=== PATIENT | female | born 2000 | race Asian ===

== ENCOUNTER 2025-07-01 08:50 | Observation (INO) | payer BC, SELFPAY ==
[2025-07-01 08:50] VITALS: BP 102/58; RESP 16; TEMP 36.8
[2025-07-01 09:01] VITALS: BP 102/58; PULSE 92
--- NOTE | 2025-07-01 09:31 | XR_ITS ---
Examination: Complete OB ultrasound greater than 14 weeks Date and time of exam: July 01, 2020 5:10 AM INDICATIONS: Vaginal bleeding beginning 4 days ago Findings: Viable intrauterine single fetus with single amniotic sac presentation cephalic spine maternal left Placenta anterior grade 1 Umbilical cord insertion seen Amniotic fluid index 12.3 cm Cervix 3.6 cm Ovaries obscured by bowel gas. Composite estimated gestational age based on BPD, head circumference, abdominal circumference, femur length is 29 weeks 1 day Estimated weight 1261.6 g. Survey of intracranial anatomy, spinal anatomy, abdominal anatomy, four-chamber heart performed with no abnormalities identified. Impression: Viable intrauterine gestation cephalic presentation.
[2025-07-01 09:32] VITALS: BP 90/56; PULSE 98
[2025-07-01 09:43] VITALS: BMI 33.6
--- NOTE | 2025-07-01 09:59 | XR_ITS ---
Examination: OB Transvaginal ultrasound of the pelvis, Limited Technique: Transvaginal sonographic images pelvis performed using cast scale imaging Exam date and time: July 01, 2025 10:10 AM INDICATIONS: Vaginal bleeding beginning 4 days ago, severe today. FINDINGS: Cervix 3.7 cm closed IMPRESSION: Cervix 3.7 cm closed.
[2025-07-01 10:01] VITALS: BP 92/57; PULSE 92
[2025-07-01 10:40] VITALS: BP 93/52; PULSE 95
== END 2025-07-01 11:37 | disposition home or self-care (01) ==
PROVIDERS: Admitting Provider Specialist; Visit Provider Specialist
DX: O46.93 Antepartum hemorrhage, unspecified, third trimester (principal); Z3A.28 28 weeks gestation of pregnancy
CPT/HCPCS: 59025; 59899; 76805; 76817

== ENCOUNTER 2025-09-14 21:16 | Inpatient (IN) | payer BC, SELFPAY ==
[2025-09-14] VITALS (36 sets, daily range): BP systolic 116–148; BP diastolic 71–92; PULSE 89–133; RESP 19; TEMP 36.6; O2SAT 90–100; BMI 36.3
[2025-09-14 22:01] LABS: Basophils # (Auto) 0.0 Thou/mm3 (0.0-0.2); Basophils % (Auto) 0 % (0-2.5); Eosinophils # (Auto) 0.0 Thou/mm3 (0.0-0.5); Eosinophils % (Auto) 1 % (0-10); Hematocrit 38.8 % (36.0-46.0); Hemoglobin 13.1 g/dL (12.0-16.0); Immature Granulocytes Auto 0.03 Thou/mm3 (0.00-0.00); Lymphocytes # (Auto) 2.1 Thou/mm3 (1.0-4.8); Lymphocytes % (Auto) 29 % (10-50); Mean Corpuscular HGB Conc 33.8 g/dl (31.0-37.0); Mean Corpuscular Hemoglobin 29.4 pg (25.0-35.0); Mean Corpuscular Volume 87 fL (80-100); Monocytes # (Auto) 0.6 Thou/mm3 (0.0-0.8); Monocytes % (Auto) 8 % (0-12); Neutrophils # (Auto) 4.4 Thou/mm3 (1.8-7.7); Neutrophils % (Auto) 62 % (37-80); Nucleated Red Blood Cell # 0.00 Thou/mm3 (0.00-0.00); Nucleated Red Blood Cell % 0 /100 WBC (0); Platelet Count 160 Thou/mm3 (140-440); RDW Standard Deviation 45.0 fL (36.4-46.3); Red Blood Count 4.46 Miln/mm3 (4.00-5.20); White Blood Count 7.1 Thou/mm3 (3.6-11.0)
[2025-09-14 22:43] LABS: Syphilis Nonreactive (Nonreactive)
[2025-09-14] MEDS: RINGERS LACTATED 1000 ML 1,000 ML 125 ML IV (23:02)
[2025-09-15] VITALS (77 sets, daily range): BP systolic 91–175; BP diastolic 51–94; PULSE 85–160; RESP 14–20; TEMP 36.7–37.4; O2SAT 84–98
[2025-09-15] MEDS: OXYTOCIN in NS 20 units 20 UNIT/1,000 ML BAG 125 UNIT IV (03:48)
--- NOTE | 2025-09-15 04:06 | PD.LDHP ---
Documentation for date of: 09/15/25 OB Labor/Induct. HPI History of Present Illness : 2 Para: 1 Term pregnancies: 1 pregnancies: 0 Living children: 1 History of Abortions: Spontaneous and Elective: 0 History of Vaginal deliveries: 1 History of sections: No History of : No Date of last menstrual period: 11/29/24 SHEFALI: 09/18/25 Gestational Age (weeks): 39 Gestational Age (days): 4 Gestational age based on last menstrual period: 41 History of present illness: H and P dictated in Nuance. History of Present Adequate Care: Yes Labs Labs: Negative: RPR, Hepatitis B, Rubella Titre, HIV, Chlamydia, Gonorrhea and Group Beta Strep and Unknown: Herpes Type 1, Herpes Type 2 and Covid-19 Past Medical History Surgical History SURGICAL: Negative Section Meds Home Medications and Allergies Home Medications ?Medication ?Instructions ?Recorded ?Confirmed ?Type vit no.95-ferrous 1 tab PO QDAY 07/01/25 09/14/25 History fumarate 28 mg-folic acid 800 mcg tablet () Allergies Allergy/AdvReac Type Severity Reaction Status Date / Time No Known Allergies Allergy Verified 09/14/25 21:26 OB Exam Physical Exam Vital signs: Temp Pulse Resp BP Pulse Ox 97.9 F 122 H 19 111/68 98 09/14/25 23:09 09/15/25 04:05 09/14/25 23:09 09/15/25 04:05 09/15/25 04:02 OB Results Labs 09/14/25 21:45 Labs: Short CBC 09/14/25 Range/Units 21:45 WBC 7.1 (3.6-11.0) Thou/mm3 Hgb 13.1 (12.0-16.0) g/dL Hct 38.8 (36.0-46.0) % Plt Count 160 (140-440) Thou/mm3
--- NOTE | 2025-09-15 04:07 | PD.LDDS ---
DS: Providers Provider Date of admission: 09/14/25 21:47 Primary care physician: Physician No Primary/Family Admitting Provider: Felipe Porras MD Attending Provider on Admission: Felipe Porras MD Attending Provider on DC: Felipe Porras MD Discharging Provider: Felipe Porras MD DS: Diagnosis Problem List Completed Was Problem List Reviewed/Reconciled?: Yes Summary/Hosp Course Brief History: H and P dictated in Nuance. Peripartum Data Delivery Method: Normal Vaginal Delivery Episiotomy Description: None Time Spent with Patient Time attestation: Total time spent providing and/or coordinating discharge services: Exam Vital Signs Temp Pulse Resp BP Pulse Ox 97.9 F 122 H 19 111/68 98 09/14/25 23:09 09/15/25 04:05 09/14/25 23:09 09/15/25 04:05 09/15/25 04:02 Discharge Plan Plan Patient Disposition: HOME (Self Care) Patient condition on transfer: Stable Prescriptions/Referrals Prescriptions/Med Rec: New ibuprofen 600 mg tablet 600 mg PO Q6H PRN (Reason: pain) Qty: 30 0RF Continued PNV no.95-ferrous fumarate-FA [] 28 mg iron- 800 mcg tablet 1 tab PO QDAY Patient Comments: TAKE 1 TABLET BY MOUTH EVERY DAY Referrals: No Primary/Family,Physician [Primary Care Provider] Patient/Caregiver Discharge Instructions Discharge Activity: activity as tolerated Other Discharge Activity Instructions:: Follow up office 6 weeks Education Materials: After a Vaginal , Breast Care After , Understanding Depression, : Caring for Yourself, Hemorrhage Print Language: [place] Stand Alone Forms: [employer] Award Info., Patient Portal Info Letter Discharge Order Discharge Orders: Discharge (Routine); Ordered 09/16/25 Ordered By: Felipe Porras Planned Discharge Date 09/16/25
--- NOTE | 2025-09-15 04:08 | OBDSUM_ITS ---
Shoulder Dystocia General Time head delivered:: 03:46 Traction performed:: none at any time Maneuvers/Procedures Sarbjit: Order Maneuver Performed:: 1 Time begun:: 03:46 Time ended:: 03:47 Performed by:: Ana ARGUETA and Thania ARGUETA suprapubic pressure: Order Maneuver Performed:: 2 Time begun:: 03:46 Time ended:: 03:47 Performed by:: Marcella Ren Wood's: Order Maneuver Performed:: 3 Time begun:: 03:46 Time ended:: 03:47 Performed by:: Dr Porras Was fundal Pressure applied? Fundal pressure applied:: No Shoulder Under Symphisis at head delivery:: right Immediate Assessment Immediate assessment:: no apparent injury Surgical Team Notified Surgical team notified:: Yes Data (Dee) Data Hx Section: No : 2 Term: 1 : 0 Livin Abortions: Spontaneous & Theraputic: 0 Delivery Data (Dee) Labor Data Initiation of labor: Spontaneous Induction/Augmentation Agent: None ROM date: 09/15/25 ROM time: 03:05 Amniotic membrane rupture type: Spontaneous Amniotic fluid description: Clear Delivery Data EDC: 09/18/25 EDC calculated by:: LMP/early US confirmation Onset of labor date: 09/14/25 Onset of labor time: 19:45 Complete dilation date: 09/15/25 Complete dilation time: 03:07 delivery date: 09/15/25 delivery time: 03:47 Gestational age (weeks): 39 Gestational age (days): 4 Placenta delivery date: 09/15/25 Placenta delivery time: 04:00 Stage 1 total time: Labor - Stage 1 Duration 7 hours and 22 minutes Delivered by: nrey Delivery nurse: gladys ghotra rn. [place]orn nurse: mehdi ledesma rn. Health Physics Technician at delivery: No Support person(s) at delivery: fob. Delivery Method Delivery method: Normal Vaginal Delivery Presentation: Vertex position: OA Anesthesia Type Anesthesia Type: Epidural Placenta Placenta delivery description: Spontaneous Cord blood sent to lab: Yes cord blood collection: Cord Blood Type Episiotomy Episiotomy description: None EBL Estimated blood loss (ml): 100 Umbilical Cord cord description: Nuchal Cord Additional Procedures None Complications Complications: Shoulder Dystocia [place] Data (Dee) Data [place]'s gender: Male Identification band number: [id number] weight (gms): 8 lb 2.69 oz Weight (pounds): 8 lbs and 2.7 ozs 1 minute: 8 5 minutes: 9
[2025-09-15] MEDS: METHYLERGONOVINE INJ 0.2 MG/ML VIAL IM (04:37)
--- NOTE | 2025-09-15 05:13 | ESHP_ITS ---
RE: NEELAM RINCON : 2000 DATE OF ADMISSION: 09/14/2025 HISTORY OF PRESENT ILLNESS: A 25-year-old 2, para 1-0-0-1 with due date of 09/18 with intrauterine at 39 weeks and 4 days who presents to labor and delivery complaining of contractions and is noted to have progressed to fully dilated and delivered a viable male infant via vaginal delivery. ALLERGIES: NO KNOWN DRUG ALLERGIES. MEDICATIONS: multivitamin 1 p.o. daily. PAST MEDICAL HISTORY: Prior delivery of a macrosomal infant, hemorrhage in her previous , anxiety and depression. SOCIAL HISTORY: Marijuana use. FAMILY HISTORY: Sister with asthma. Paternal grandmother cancer of unknown origin. OBSTETRIC HISTORY: 01/2021, 41-week normal vaginal delivery, 9 pound 3 ounce male complicated by uterine atony resolved with Uterotonics. PAST SURGICAL HISTORY: Denies. REVIEW OF SYSTEMS: She denies any chest pain, palpitations, cough, fever, shortness of breath, flank pain, or lower extremity pain. PHYSICAL EXAMINATION: VITAL SIGNS: Blood pressure 118/76, heart rate 88, respirations 18, temperature is 98.2, weight 173 pounds. HEENT: Oropharynx and sclerae clear. LUNGS: Clear to auscultation bilaterally. HEART: Regular rate and rhythm. ABDOMEN: fundus firm at the umbilicus. PELVIC: Perineum intact. EXTREMITIES: Nontender. ASSESSMENT AND PLAN: day #0 status post vaginal delivery complicated by shoulder dystocia. See delivery summary for details. PLAN: care. DT: 04:35:36 TT: 05:12:00 Ref: [id number] - TID: [id number]
[2025-09-15] MEDS: BENZO/LANO/ALOE (Dermoplast) 60 GM CAN 1 SPRAY TOP (06:01)
[2025-09-15] MEDS: ACETAMINOPHEN 325 MG TABLET 650 MG PO (07:07)
[2025-09-15 08:51] LABS: Amphetamine/Metham Scrn,Ur OB Negative (Negative); Benzoylecgonine Screen, Ur OB Negative (Negative); Opiate Screen,Urine OB Negative (Negative); THC Screen,Urine OB Negative (Negative)
--- NOTE | 2025-09-15 12:48 | PC.NURSE ---
1258: RN CALLED AND SPOKE TO LAB FOR [facility] STAFF KEN REPORTS THEY ARE SHORT STAFFED AND WILL SEND SOMEONE UP TO DRAW CBC WINNIE
[2025-09-15 14:30] LABS: Basophils # (Auto) 0.0 Thou/mm3 (0.0-0.2); Basophils % (Auto) 0 % (0-2.5); Eosinophils # (Auto) 0.0 Thou/mm3 (0.0-0.5); Eosinophils % (Auto) 0 % (0-10); Hematocrit 36.4 % (36.0-46.0); Hemoglobin 12.6 g/dL (12.0-16.0); Immature Granulocytes Auto 0.04 Thou/mm3 (0.00-0.00); Lymphocytes # (Auto) 1.6 Thou/mm3 (1.0-4.8); Lymphocytes % (Auto) 13 % (10-50); Mean Corpuscular HGB Conc 34.6 g/dl (31.0-37.0); Mean Corpuscular Hemoglobin 30.2 pg (25.0-35.0); Mean Corpuscular Volume 87 fL (80-100); Monocytes # (Auto) 0.9 Thou/mm3 (0.0-0.8); Monocytes % (Auto) 7 % (0-12); Neutrophils # (Auto) 9.5 Thou/mm3 (1.8-7.7); Neutrophils % (Auto) 79 % (37-80); Nucleated Red Blood Cell # 0.00 Thou/mm3 (0.00-0.00); Nucleated Red Blood Cell % 0 /100 WBC (0); Platelet Count 145 Thou/mm3 (140-440); RDW Standard Deviation 45.2 fL (36.4-46.3); Red Blood Count 4.17 Miln/mm3 (4.00-5.20); White Blood Count 12.1 Thou/mm3 (3.6-11.0)
--- NOTE | 2025-09-15 14:30 | PC.SS ---
[facility] [employer] conducted bedside contact with the patient to address nursing referral indicating patient was positive for THC during .? Toxicology screening at admission negative.? [employer] introduced self and role.? Present with patient was [place].? Patient gave consent for FOB to be present during discussion.? [facility] discussed basis of referral.? Patient denied recreational use of THC.? Patient stated that she was vaping nicotine prior to confirmation.? Patient confirmed OB services conducted with Dr. Porras.? Reports consistency with OB appointments.? , Huyen; is the patient?s second child.? delivered naturally.? Patient plans on breast feeding infant.? Patient?s other child is 4 years old.? Patient is gainfully employed.? Patient is not receiving WIC, SNAP nor TANF.? Patient denies history of alcohol/drug abuse.? Patient denies CWS intervention.? Patient denies episodes of domestic violence.? Patient denies possessing a history of mental health, reports no current possession of depression or anxiety.? Patient has access to appropriate supplies and equipment; to include a car seat.? FOB will provide transportation upon discharge.? Patient describes possessing support system consisting of FOB?s and family.? [employer] [facility] provided the patient with community resources to include Parenting Network and Warm Line.? No further intervention required at this time, rn social services will be available to address any further concerns.? [facility] updated bedside nurse.?
[2025-09-15] MEDS: IBUPROFEN TAB 400 MG TABLET 800 MG PO (15:22)
[2025-09-16] MEDS: IBUPROFEN TAB 400 MG TABLET 800 MG PO (00:55)
[2025-09-16 03:57] VITALS: BP 108/76; PULSE 77; RESP 18; TEMP 36.4; O2SAT 97
--- NOTE | 2025-09-16 07:54 | ESPR_ITS ---
RE: NEELAM RINCON : 2000 DATE OF SERVICE: 09/16/2025 SUBJECTIVE: day number 1. The patient denies any problem or complaints. OBJECTIVE: VITAL SIGNS: Blood pressure 108/76, heart rate 77, respirations 18, temperature is 97.5, pulse ox is 97% on room air. LUNGS: Clear to auscultation bilaterally. HEART: Regular rate and rhythm. ABDOMEN: Fundus is firm. EXTREMITIES: Nontender. LABORATORY DATA: Hemoglobin pre-delivery is 13.1, post delivery is 12.6. ASSESSMENT: day number 1 status post normal vaginal delivery complicated by shoulder dystocia. PLAN: Discharge home, discharge instructions given, follow up in the office in 6 weeks. DT: 07:44:47 TT: 07:53:00 Ref: [id number] - TID: [id number]
[2025-09-16 08:00] VITALS: BP 120/87; RESP 16; TEMP 36.4; O2SAT 97
[2025-09-16 12:00] VITALS: BP 119/76; PULSE 88; RESP 18; TEMP 36.4; O2SAT 98
== END 2025-09-16 17:53 | disposition home or self-care (01) | DRG 807 ==
LOC: S4SX 09-15 04:03 → S4NX 09-15 06:28
PROVIDERS: Admitting Provider Specialist; Visit Provider Specialist
DX: O66.0 Obstructed labor due to shoulder dystocia (principal); Z37.0 Single live birth; Z3A.39 39 weeks gestation of pregnancy; O69.81X0 Labor and delivery complicated by cord around neck, without compression, not applicable or unspecified
CPT/HCPCS: 36415; 59025; 59409; 80307; 85025; 86780; 86850; 86900; 86901; 86923; 94762; J2210; J2590; J2795; J7120; S0191; A9270